=== PATIENT | female | born 2000 | race African-American/Black ===

== ENCOUNTER 2018-07-27 16:24 | Emergency (ER) | payer OTHER ==
[2018-07-27 16:36] VITALS: BP 115/60; PULSE 81; TEMP 98.4; BMI 26.2
--- NOTE | 2018-07-27 17:24 | PDOC ---
History of Present Illness - General Chief Complaint: Vaginal Sxs Stated Complaint: VAGINAL PAIN Time Seen by Provider: 07/27/18 16:54 History Source: Patient Exam Limitations: No Limitations - History of Present Illness Travel History: No Initial Comments: 07/27- patient came to evaluation for severe pain/swelling and thought to be abscess to her vulva. States onset was 2 days ago progressively worsen. Has discharge, has used some cleaning white with minimal resolved. Timing/Duration: reports: getting worse Quality: reports: moderate, sharpness Past History - Travel Traveled outside of the country in the last 30 days: No Close contact w/someone who was outside of country & ill: No - Past Medical History Allergies/Adverse Reactions: Allergies Allergy/AdvReac Type Severity Reaction Status Date / Time No Known Allergies Allergy Verified 07/27/18 16:31 Home Medications: Ambulatory Orders Hydroxychloroquine Sulfate [Plaquenil] 400 mg PO DAILY 08/19/15 Mycophenolate Mofetil [Cellcept -] 1,000 mg PO AM 08/19/15 Cholecalciferol (Vitamin D3) [Vitamin D3] 1,000 unit PO DAILY 10/22/17 Mycophenolate Mofetil [Cellcept] 1,500 mg PO HS 10/22/17 Acyclovir [Zovirax -] 400 mg PO TID #21 tablet 07/27/18 COPD: No Other medical history: lupus - Reproductive History (#): 0 Para: 0 Therapeutic (s) & number: No - Immunization History Immunization Up to Date: Yes - Suicide/Smoking/Psychosocial Hx Smoking History: Never smoked Have you smoked in the past 12 months: No Hx Alcohol Use: No Drug/Substance Use Hx: No Substance Use Type: None Review of Systems - Review of Systems Able to Perform ROS?: Yes Is the patient limited [place] proficient: Yes Constitutional: Yes: Symptoms Reported, See HPI, Malaise. No: Chills, Fever HEENTM: Yes: See HPI. No: Symptoms Reported Respiratory: Yes: See HPI. No: Symptoms reported, Cough : Yes: Symptoms Reported, See HPI, Burning, Discharge Integumentary: Yes: Symptoms Reported, See HPI, Erythema, Lesions, Lumps All Other Systems: Reviewed and Negative *Physical Exam - Vital Signs Last Vital Signs Temp Pulse Resp BP Pulse Ox 98.4 F 81 18 115/60 99 07/27/18 16:28 07/27/18 16:28 07/27/18 16:28 07/27/18 16:28 07/27/18 16:28 - Physical Exam General Appearance: Yes: Nourished, Appropriately Dressed, Apparent Distress, Moderate Distress HEENT: positive: MATTHEW, Normal ENT Inspection, TMs Normal, Pharynx Normal Female Pelvic Exam: negative: normal external exam (patient with numerous ulcerative lesions with thick yellowish drainage inner and external labia and some and vaginal os extending to perineum. Consistent with appearance of herpes) Gastrointestinal/Abdominal: positive: Soft Integumentary: positive: Erythema, Rash, Swelling. 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 Culture sent, recommended acyclovir 400 mg 3 times a day for one week and follow-up with [facility] in next week. Discussed need to discuss this outbreak with sexual partner as is contagious. 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 - Discharge Dispostion Disposition: HOME Condition at time of disposition: Stable Decision to Admit order: No - Prescriptions Prescriptions: Acyclovir [Zovirax -] 400 mg PO TID #21 tablet - Referrals Referrals: Sadi Helton MD [Primary Care Provider] - - Patient Instructions Printed Discharge Instructions: DI for Genital Herpes Additional Instructions: Rest, drink lots of fluids: Teas, water, soups Avoid contact with others until fevers and symptoms resolved Lots of handwashing and good hygiene Continue [id number] medications for symptomatic relief- vagicil creams to help soothe itching and chafing Tylenol or Motrin for fever and pain Valtrex 1 g twice a day for one week 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
== END 2018-07-27 17:45 | disposition home or self-care (01) ==
LOC: JER 16:24 → JERFT 16:24
DX: A60.04 Herpesviral vulvovaginitis (principal)
CPT/HCPCS: 87252; 99281-25

== ENCOUNTER 2019-12-20 11:08 | Emergency (ER) | payer OTHER ==
[2019-12-20 11:12] VITALS: BP 127/78; PULSE 88; TEMP 97.9; BMI 27.8
--- NOTE | 2019-12-20 11:44 | PDOC ---
History of Present Illness - General Stated Complaint: CHEST PAIN, DIARRHEA, STUFFY NOSE Time Seen by Provider: 12/20/19 11:09 - History of Present Illness Initial Comments: 12/20/19 11:38 19 years old with past medical history significant for lupus on Plaquenil and mycophenolate presents to the emergency department with concern for COVID. Patient complaining of runny nose mild fatigue and weakness and diarrhea several episodes nonbilious nonbloody no nausea no vomiting. Had mentioned chest pain but this is something which patient has had in the past sharp for a few seconds not new or different than previous episodes has been worked up by her PCP for this in the past Currently no chest pain Other symptoms are mild to moderate persistent constant her main concern is for COVID requesting COVID testing Past History - Medical History Allergies/Adverse Reactions: Allergies Allergy/AdvReac Type Severity Reaction Status Date / Time No Known Allergies Allergy Verified 12/20/19 11:08 Home Medications: Ambulatory Orders Hydroxychloroquine Sulfate [Plaquenil] 400 mg PO DAILY 08/19/15 Mycophenolate Mofetil [Cellcept -] 1,000 mg PO BID 08/19/15 COPD: No Other medical history: SLE - Reproductive History Is Patient Now?: No (#): 0 Para: 0 Therapeutic (s) & number: No - Immunization History Immunization Up to Date: Yes - Psycho-Social/Smoking History Smoking History: Never smoked Have you smoked in the past 12 months: No Information on smoking cessation initiated: No - Substance Abuse Hx (Audit-C & DAST Scrn) How often the patient has a drink containing alcohol: Never Score: In Men: 4 or > Positive; In Women: 3 or > Positive: 0 Screen Result (Pos requires Nsg. Audit-10AR): Negative In the last yr the pt used illegal drug/Rx for NonMed reason: No Score: Yes response is considered Positive: 0 Screen Result (Positive result requires Nsg. DAST-10): Negative Review of Systems - Review of Systems Comments:: 12/20/19 11:42 ROS: A complete review of 10 out of 10 review of systems is taken and is negative apart from what is previously mentioned below and in the HPI. *Physical Exam - Vital Signs Last Vital Signs Temp Pulse Resp BP Pulse Ox 97.9 F 88 16 127/78 100 12/20/19 11:08 12/20/19 11:08 12/20/19 11:08 12/20/19 11:08 12/20/19 11:08 - Physical Exam 12/20/19 11:42 Vitals: Triage Vital signs reviewed General Appearance: No acute distress, well nourished well developed, Head: Atraumatic, Neck: Supple; no Nucal rigidity Chest Wall: Nontender Cardiac: Regular rate and rhythym, no murmurs, no rubs, no gallops, Lungs: Clear to auscultation bilateral, good air movement bilaterally, Abdomen: Soft, non distended, normal bowel sounds, non tender to palpation Extremities: Full range of motion to all extremities, no cyanosis, clubbing, or edema Skin: Warm and dry, no rashes or lesions, no rash, no petechiae Psych: Normal mood, normal affect Medical Decision Making - Medical Decision Making 12/20/19 11:42 19 years old past medical history significant for lupus presents to the ED with runny nose diarrheal illness and weakness. No active chest pain offered patient an EKG and work-up but patient just wants COVID testing at this time as her chest pain is not new or different does not have any at this time History examination most consistent with viral GI illness however will swab for COVID Patient will return to the ED for any severe worsening symptoms Findings, the need for follow-up and strict return instructions discussed with patient. Discharge - Discharge Information Problems reviewed: Yes Clinical Impression/Diagnosis: Diarrhea Qualifiers: Diarrhea type: unspecified type Qualified Code(s): R19.7 - Diarrhea, unspecified Condition: Stable - Follow up/Referral Referrals: Sadi Helton MD [Primary Care Provider] - - Patient Discharge Instructions Patient Printed Discharge Instructions: Diarrhea Additional Instructions: Drink plenty of fluids. Take [id number] probiotic as directed on package Follow-up with your doctor within 1 week. Return to ED for any shortness of breath any returning or worsening chest pain any severe worsening symptoms or for any concerns. - Post Discharge Activity Work/Back to School Note: Back to Work
== END 2019-12-20 12:00 | disposition home or self-care (01) ==
LOC: FER 11:08
DX: R19.7 Diarrhea, unspecified (principal)
CPT/HCPCS: 99284-25; U0003

== ENCOUNTER 2020-01-17 14:10 | Emergency (ER) | payer OTHER ==
--- OUTSIDE RECORDS SUMMARY | 2020-01-17 14:18 | XMS ---
:2000 Author Organization [facility] Care Team Providers Name Role Phone Grace Barton MD Unavailable Unavailable Grace Barton MD Unavailable Unavailable Db-Jhonny Landry MD Unavailable Unavailable Db-Frantz, T Unavailable Unavailable Db-Frantz, T MD Unavailable Unavailable Db-Frantz, T MD Unavailable Unavailable Db-Frantz, T MD Unavailable Unavailable Db-Frantz, T Unavailable Unavailable Db-Frantz, T Unavailable Unavailable Db-Frantz, T MD Unavailable Unavailable Re-disclosure Warning The records that you are about to access may contain information from federally- assisted alcohol or drug abuse programs. If such information is present, then the following federally mandated warning applies: This information has been disclosed to you from records protected by federal confidentiality rules (42 CFR part 2). The federal rules prohibit you from making any further disclosure of this information unless further disclosure is expressly permitted by the written consent of the person to whom it pertains or as otherwise permitted by 42 CFR part 2. A general authorization for the release of medical or other information is NOT sufficient for this purpose. The Federal rules restrict any use of the information to criminally investigate or prosecute any alcohol or drug abuse patient.The records that you are about to access may contain highly sensitive health information, the redisclosure of which is protected by Article 27-F of the [facility] Public Health law. If you continue you may haveaccess to information: Regarding HIV / AIDS; Provided by facilities licensed or operated by the [facility] Office of Mental Health; or Provided by the [facility] Office for People With Developmental Disabilities. If such information is present, then the following [facility] mandated warning applies: This information has been disclosed to you from confidential records which are protected by state law. State law prohibits you from making any further disclosure of this information without the specific written consent of the person to whom it pertains, or as otherwise permitted by law. Any unauthorized further disclosure in violation of state law may result in a fine or penitentiary sentence or both. A general authorization for the release of medical or other information is NOT sufficient authorization for further disclosure. Family History Family Member Family Member Family Member Date of Description Data Source(s) Name Gender Status Status Unknown [facility] [facility] 12:[facility]:00 AM [facility] EDT [facility] ) Unknown Male Problem 11/08/2012 [facility] [facility] 12:00:00 AM [facility] EDT [facility] ) Encounters Encounter Providers Location Date Indications Data Source(s ) [facility] Rheumatology 20 (Matthew Stovall MD 12:18:00 Childrens PM EDT - Health 12/31/19 [facility]) 12:18:00 PM EDT OutpatientOFF Attender: Peds Rheum At 12/26/19 [facility]OUTPATIEN [facility] - systemic lupus ([place] T VISIT EST Sia JORDAN Telehealth 09:00:00 erythematosusLFT Child rens 20-32 AM EDT - elevationSystemic Health 12/26/19 lupus erythematosus, Phys icians 20 organ or system LL) 09:00:00 involvement AM EDT unspecified 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 LFT elevation Systemic lupus erythematosus, organ or s ystem involvement unspecified Attender: [place] [facility] 11/17/2019 [facility] 02:41:00 PM (Matthew Stovall MD EDT - Childrens 11/17/2019 Health 02:41:00 PM [facility] EDT [facility]) Outpatien Attender: [facility] 11/11/2019 LFT elevationWeight N EXTGEN tOFFICE/O [facility] Rheumatology 09:30:00 AM gainSystemic lupus (Deangelo Stovall MD EDT - erythematosus, Children s VISIT EST 11/11/2019 organ or system Health 20-32 09:30:00 AM involvement [facility] EDT unspecified LLP) LFT elevation Weight gain Systemic lupus erythematosus, organ or s ystem involvement unspecified Attender: Neil Peds 10/13/2019 [facility] Rheumatology 03:12:00 PM (Matthew Stovall MD EDT - Childrens 10/13/2019 Health 03:12:00 PM [facility] EDT [facility]) Outpatie Attender: Peds Rheum At 10/03/2019 Upper back painXiphoid [facility] Jhonny Aixat - 11:00:00 AM painGlomerular disease (Matthew /DAMARIS Stovall MD Telehealth EDT - in systemic lupus Child rens ENT 10/03/2019 erythematosusSystemic Hea lt VISIT 11:00:00 AM lupus erythematosus, Phy sicians EST EDT organ or system LLP) 20-32 involvement unspecified Upper back pain Xiphoid pain 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 Systemic lupus erythematosus, organ or s ystem involvement unspecified Attender: Neil Peds 09/04/2019 [facility] Rheumatology 10:16:00 AM (Matthew Stovall MD EDT - Childrens 09/04/2019 Health 10:16:00 AM [facility] EDT [facility]) Attender: Neil Peds 09/02/2019 [facility] Rheumatology 08:39:00 AM (Matthew Stovall MD EDT - Childrens 09/02/2019 Health 08:39:00 AM [facility]) Outpatie Attender: Peds Rheum At 08/29/2019 [facility] 09:[facility]00 AM coronavirus disease (Deangelo hernandezn /DAMARIS Stovall MD Telehealth EDT - (COVID-19)Glomerular [facility] 08/29/2019 disease in systemic Healt h VISIT 09:00:00 AM lupus [facility] EST EDT erythematosusSystemic LLP ) 13-20 lupus erythematosus, organ or system involvement unspecified History of 2018 novel coronavirus diseas e (COVID-19) 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 Systemic lupus erythematosus, organ or s ystem involvement unspecified 11-20 MINS OF Attender: Peds Rheum At 07/11/2019 [facility] Grace Duckwrothrst - 12:33:00 PM (Matthew DISCUSSION VIA Telehealth EDT - [facility] TELEPHONE E/M 07/11/2019 Health PHYS 12:33:00 PM [facility] EDT [facility]) Attender: Neil Peds 06/27/2019 [facility] Rheumatology 01:51:00 PM (Matthew Stovall MD EDT - Childrens 06/27/2019 Health 01:51:00 PM [facility] ED[facility]) OutpatientOFFI Attender: Neil Peds 06/04/2019 Systemic lupus NE XTGEN CE/OUTPATIENT [facility] Rheumatology 02:00:00 PM erythematosus, (Isaias ton VISIT EST Sia JORDAN EST - organ or system Childre ns -06/04/2019 involvement Health 02:00:00 PM unspecified [facility] EST LLP) Systemic lupus erythematosus, organ or s ystem involvement unspecified Attender: Neil Peds 04/24/2019 [facility] Rheumatology 10:37:00 AM (Matthew Stovall MD EST - Childrens 04/24/2019 Health 10:37:00 AM [facility] EST LLP) [facility] AM (Matthew Barton MD EST - Childrens 02/13/2019 Health 10:00:00 AM [facility] EST LLP) Attender: Neil Peds 02/12/2019 [facility] Rheumatology 11:05:00 AM (Matthew Stovall MD EST - Childrens 02/12/2019 Health 11:05:00 AM [facility] EST LLP) Outpatie Attender: Neil Peds 02/04/2019 [facility] 11:00:00 AM deficiencyNoncomplianc e (Matthew /DAMARIS Stovall MD EDT - w/medication treatment Childrens ENT 02/04/2019 due to intermit use of He alth VISIT 11:00:00 AM medicationSystemic lupus [facility]icians EST EDT erythematosus, organ or L LP) system involvement unspecified Vitamin D deficiency Noncompliance w/medication treatment due to intermit use of medication Systemic lupus erythematosus, organ or s ystem involvement unspecified Attender: J[facility]ny [facility] Peds 12/16/2018 02:22:00 NEXTGEN (Matthew Stovall MD Rheumatology PM EDT - 12/16/2018 [facility] 02:22:00 PM EDT Physician s LLP) Medications Medication Brand Start Product Dose Route Administrative Pharmacy [facility] Indications Reaction Description Data Name Date Form Instructions Instructions Source(s) Hydroxychlo Plaque active hydroxy chlor NEXTGEN roquine nil 2019 oquine ([place] Sulfate 200 200 mg 12:00: sulfate 2 00 Childrens MG Oral tablet 00 AM MG Oral Health Tablet EDT Tablet Physicians [Plaquenil] [Plaquenil] L LP) Plaquenil 200 mg tablet Patient has SLE and needs hydroxychloroq uine for control. mycophenolate CellCept 08/29/2019 active mycophenolate NEXTGEN mofetil 500 MG 500 mg 12:00:00 AM m ofetil 500 MG ([place] Oral Tablet tablet EDT Oral Tablet Childrens [Cellcept] [Cellcept] Hea lth CellCept 500 mg Phys icians tablet LLP) !! Check FamilyWize Pricing: BIN #: [id number] Group #: [id number] Card #: [id number] PCN:IZABELLA Hydroxychloroquine Plaquenil 07/11/2019 completed Hydroxychloroquine NEXTGEN Sulfate 200 MG Oral 200 mg 12:00:00 AM Sulfate 200 MG Oral ([place] Tablet [Plaquenil] tablet EDT Tabl et [Plaquenil] Childrens Plaquenil 200 mg Hea lth tablet [facility]) !! Check FamilyWize Pricing: BIN #: [id number] Group #: [id number] Card #: [id number] PCN:IZABELLA mycophenolate CellCept 07/11/2019 completed mycophenolate NEXTGEN mofetil 500 MG 500 mg 12:00:00 AM m ofetil 500 MG ([place] Oral Tablet tablet EDT Oral Tablet Childrens [Cellcept] [Cellcept] Hea lth CellCept 500 mg Phys icians tablet LLP) !! Check FamilyWize Pricing: BIN #: [id number] Group #: [id number] Card #: [id number] PCN: Ergocalciferol Vitamin 07/11/2019 active 1 capsule by NEXTGEN [id number] UNT Oral D2 1,250 12:00:00 AM mouth weekly ([place] Capsule Vitamin mcg EDT for syste yadira Childrens D2 1,250 mcg (50,000 lupus Hea lth (50,000 unit) unit) erythemato veronica [facility] capsule capsule LLP) !! Check FamilyWize Pricing: BIN #: [id number] Group #: [id number] Card #: [id number] PCN: Hydroxychloroquine Plaquenil 07/11/2019 completed Hydroxychloroquine NEXTGEN Sulfate 200 MG Oral 200 mg 12:00:00 AM Sulfate 200 MG Oral ([place] Tablet [Plaquenil] tablet EDT Tabl et [Plaquenil] Childrens Plaquenil 200 mg Hea lth tablet [facility]) !! Check FamilyWize Pricing: BIN #: [id number] Group #: [id number] Card #: [id number] PCN: Hydroxychloroquine Plaquenil 06/04/2019 completed Hydroxychloroquine NEXTGEN Sulfate 200 MG Oral 200 mg 12:00:00 AM Sulfate 200 MG Oral ([place] Tablet [Plaquenil] tablet EST Tabl et [Plaquenil] Childrens Plaquenil 200 mg Hea lth tablet [facility]) !! Check FamilyWize Pricing: BIN #: [id number] Group #: [id number] Card #: [id number] PCN: mycophenolate CellCept 06/04/2019 completed mycophenolate NEXTGEN mofetil 500 MG 500 mg 12:00:00 AM m ofetil 500 MG ([place] Oral Tablet tablet EST Oral Tablet Childrens [Cellcept] [Cellcept] Hea lth CellCept 500 mg Phys [facility] tablet LLP) !! Check FamilyWize Pricing: BIN #: [id number] Group #: [id number] Card #: [id number] PCN: mycophenolate CellCept 02/13/2019 completed mycophenolate NEXTGEN mofetil 500 MG 500 mg 12:00:00 AM m ofetil 500 MG ([place] Oral Tablet tablet EST Oral Tablet Childrens [Cellcept] [Cellcept] Hea lth CellCept 500 mg Phys [facility] tablet LLP) !! Check FamilyWize Pricing: BIN #: [id number] Group #: [id number] Card #: [id number] PCN: Hydroxychloroquine Plaquenil 02/12/2019 completed Hydroxychloroquine NEXTGEN Sulfate 200 MG Oral 200 mg 12:00:00 AM Sulfate 200 MG Oral ([place] Tablet [Plaquenil] tablet EST Tabl et [Plaquenil] Childrens Plaquenil 200 mg Hea lth tablet [facility]) !! Check FamilyWize Pricing: BIN #: [id number] Group #: [id number] Card #: [id number] PCN:IZABELLA Hydroxychloroquine Plaquenil 02/04/2019 completed Hydroxychloroquine NEXTGEN Sulfate 200 MG Oral 200 mg 12:00:00 AM Sulfate 200 MG Oral ([place] Tablet [Plaquenil] tablet EDT Tabl et [Plaquenil] Childrens Plaquenil 200 mg Hea lth tablet [facility]) !! Check FamilyWize Pricing: BIN #: [id number] Group #: [id number] Card #: [id number] PCN:IZABELLA mycophenolate MYCOPHENOLATE 08/02/2018 completed mycophenolate NEXTGEN mofetil 500 MG MOFETIL 500 MG 12:00:00 AM mofetil 500 MG ([place] Oral Tablet TABLET EDT Oral Tablet Childrens [Cellcept] [Cellcept] Hea lth MYCOPHENOLATE Physic ians MOFETIL 500 MG LLP) TABLET !! Check FamilyWize Pricing: BIN #: [id number] Group #: [id number] Card #: [id number] PCN:IZABELLA Hydroxychloroquine Plaquenil 07/12/2018 completed Hydroxychloroquine NEXTGEN Sulfate 200 MG Oral 200 mg 12:00:00 AM Sulfate 200 MG Oral ([place] Tablet [Plaquenil] tablet EDT Tabl et [Plaquenil] Childrens Plaquenil 200 mg Hea lth tablet [facility]) !! Check FamilyWize Pricing: BIN #: [id number] Group #: [id number] Card #: [id number] PCN: Ergocalciferol [id number] Vitamin D2 completed as needed NEXTGEN ([place] UNT Oral Capsule 50,000 unit Children Health Vitamin D2 50,000 capsule [facility]) unit capsule Insurance Providers Payer name Policy type / Policy ID Covered Covered alliance party's Policy Plan Coverage type alliance party ID relationship to [place] Information [place] FITO [id number] Commercial [id number] self [id number] insurance [facility] [id number] SP [id number] PLANS [employer] Commercial [id number] PLANS insurance [facility] [id number] PLANS Dental [id number] S [id number] 200 [facility] MKD Surgeries/Procedures Procedure Description Date Indications Data Source(s) OFFICE/OUTPATIENT VISIT 12/26/2019 NEXT GEN ([place] EST 20 12:00:00 AM EDT [facility] - 12/26/2019 [facility]) 12:00:00 AM EDT OFFICE/OUTPATIENT VISIT 11/11/2019 NEXT GEN ([facility] 12:00:00 AM EDT Childrens [place] [facility] - 11/11/2019 [facility]) 12:00:00 AM EDT OFFICE/OUTPATIENT VISIT 10/03/2019 NEXT GEN ([place] EST 12:00:00 AM EDT Childrens [place] [facility] - 10/03/2019 [facility]) 12:00:00 AM EDT OFFICE/OUTPATIENT VISIT 08/29/2019 NEXT GEN ([place] EST 13-20 12:00:00 AM EDT Childrens [place] [facility] - 08/29/2019 [facility]) 12:00:00 AM EDT Overhead Irrigator Changed The Dx 07/11/2019 NEXTGEN ([place] (codes Or Mapping) 12:00:00 AM EDT [facility] - 07/11/2019 [facility]) 12:00:00 AM EDT PHONE E/M PHYS/QHP 07/11/2019 NEXTGEN ( [place] 11-20 MIN 12:00:00 AM EDT Childrens [place] [facility] - 07/11/2019 [facility]) 12:00:00 AM EDT 11-20 MINS OF MEDICAL 07/11/2019 NEXTGE N ([place] DISCUSSION VIA 12:00:00 AM EDT [facility] TELEPHONE E/M PHYS - 07/11/2019 [facility]) 12:00:00 AM EDT OFFICE/OUTPATIENT VISIT 06/04/2019 NEXT GEN ([facility] 12:00:00 AM EST Childrenari Hawkins alth - 06/04/2019 [facility]) 12:00:00 AM EST OFFICE/OUTPATIENT VISIT 02/04/2019 NEXT GEN ([facility] 12:00:00 AM EDT Childrens [place] [facility] - 02/04/2019 [facility]) 12:00:00 AM EDT Results ID Date Data Source [id number] 12/20/2019 11:40:00 AM EDT [facility] Name Value Range Interpretation Description Data Sup porting Code Source(s) Document(s ) SARS [facility] coronavirus 2 RNA This lab was ordered by PEPE CHAVEZ and reported by [facility]. ID Date Data Source [id number] 08/28/2019 12:00:00 AM EDT [facility] Name Value Range Interpretation Code Description Data Aziza rce(s) Supporting Document(s ) 2019-nCoV [facility] RNA XXX DANIEL+probe- Imp This lab was ordered by [facility] and reported by [facility]. ID Date Data Source [id number] 06/20/2019 12:00:00 AM EDT [facility] Name Value Range Interpretation Code Description Data Aziza rce(s) Supporting Document(s ) SARS-COV-2 [facility] RNA [facility] DANIEL+PROBE- IMP This lab was ordered by Lali GRIGSBY and reported by [facility] EMMANUEL. Procedure Social History Code Duration Value Status Description Data Source(s ) Caffeine Use 12/26/2019 completed NEXTGEN (Isaias ton Details 12:00:00 AM [facility] EDT [facility] ) Smoking 12/26/2019 Unknown if completed Unknown if ever NEXTGEN ( [place] 12:00:00 AM ever smoked smoked [facility] EDT [facility] ) 11/11/2019 Never smoked completed Never smoked NEXTGEN ([place] 12:00:00 [facility] Caffeine Use 10/03/2019 completed NEXTGEN ([place] ton Details 12:00:00 AM [facility] EDT [facility] ) Vital Signs ID Date Data Source UNK Name Value Range Interpretation Code Description Data Source(s) Body mass index 27.58 kg/m2 Overweight 27.58 kg/m2 NEXTGEN ([place] (BMI) [Ratio] [facility] ) Body temperature 36.8 Nieves 36.8 Nieves NEXTGEN ([facility] ) Heart rate 73 /min 73 /min NEXTGEN ([place] [facility] ) Diastolic blood 78 mm[Hg] 78 mm[Hg] NEXTGEN ( [place] pressure [facility] ) Systolic blood 120 mm[Hg] 120 mm[Hg] NEXTGEN ([place] pressure [facility] ) Body weight 64.410 kg 64.410 kg NEXTGEN ([place] [facility] ) Body height 152.80 cm 152.80 cm NEXTGEN ([place] [facility] ) Body mass index 25.95 kg/m2 Overweight 25.95 kg/m2 NEXTGEN ([place] (BMI) [Ratio] [facility] ) Body temperature 36.4 Nieves 36.4 Nieves NEXTGEN ([facility] ) Heart rate 64 /min 64 /min NEXTGEN ([place] [facility] ) Diastolic blood 76 mm[Hg] 76 mm[Hg] NEXTGEN ( [place] pressure [facility] ) Systolic blood 118 mm[Hg] 118 mm[Hg] NEXTGEN ([place] pressure [facility] ) Body weight 59.965 kg 59.965 kg NEXTGEN ([place] [facility] ) Body height 152.00 cm 152.00 cm NEXTGEN ([facility] ) Body surface area 1.56 m2 1.56 m2 NEXTGEN ([place] [facility] ) Body mass index 24.55 kg/m2 24.55 kg/m2 NEXTGEN ([place] (BMI) [Ratio] [facility] ) Body temperature 36.4 Nieves 36.4 Nieves NEXTGEN ([facility] ) Heart rate 82 /min 82 /min NEXTGEN ([place] [facility] ) Diastolic blood 66 mm[Hg] 66 mm[Hg] NEXTGEN ( [place] pressure [facility] ) Systolic blood 121 mm[Hg] 121 mm[Hg] NEXTGEN ([place] pressure [facility] ) Body weight 57.334 kg 57.334 kg NEXTGEN ([place] [facility] ) Body height 152.80 cm 152.80 cm NEXTGEN ([place] [facility] ) Patient Treatment Plan of Care Planned Activity Planned Date Details Description Data Source (s) Hydroxychloroquine Sulfate 08/29/2019 N EXTGEN ([place] 200 MG Oral Tablet 12:00:00 AM EDT [facility]) mycophenolate mofetil 500 MG 08/29/2019 NEXTGEN ([place] Oral Tablet [Cellcept] 12:00:00 AM EDT [facility]) Ergocalciferol [id number] UNT 07/11/2019 NEX TGEN ([place] Oral Capsule 12:00:00 AM EDT [facility]) Hydroxychloroquine Sulfate 07/11/2019 N EXTGEN ([place] 200 MG Oral Tablet 12:00:00 AM EDT [facility] [Plaquenil] [facility]) mycophenolate mofetil 500 MG 07/11/2019 NEXTGEN ([place] Oral Tablet [Cellcept] 12:00:00 AM EDT [facility]) Hydroxychloroquine Sulfate 07/11/2019 N EXTGEN ([place] 200 MG Oral Tablet 12:00:00 AM EDT [facility] [Plaquenil] [facility]) mycophenolate mofetil 500 MG 06/04/2019 NEXTGEN ([place] Oral Tablet [Cellcept] 12:00:00 AM EST [facility]) Hydroxychloroquine Sulfate 06/04/2019 N EXTGEN ([place] 200 MG Oral Tablet 12:00:00 AM EST [facility] [Plaquenil] [facility]) mycophenolate mofetil 500 MG 02/13/2019 NEXTGEN ([place] Oral Tablet [Cellcept] 12:00:00 AM EST [facility]) Hydroxychloroquine Sulfate 02/12/2019 N EXTGEN ([place] 200 MG Oral Tablet 12:00:00 AM EST [facility] [Plaquenil] [facility]) Hydroxychloroquine Sulfate 02/04/2019 N EXTGEN ([place] 200 MG Oral Tablet 12:00:00 AM EDT [facility] [Plaquenil] [facility]) mycophenolate mofetil 500 MG 08/02/2018 NEXTGEN ([place] Oral Tablet [Cellcept] 12:00:00 AM EDT [facility]) Hydroxychloroquine Sulfate 07/12/2018 N EXTGEN ([place] 200 MG Oral Tablet 12:00:00 AM EDT [facility] [Plaquenil] [facility]) Ergocalciferol [id number] UNT NEX TGEN ([place] Oral Capsule [facility])
[2020-01-17] MEDS ORDERED: SODIUM CHLORIDE 1,000 ML IV STA (14:24)
[2020-01-17] MEDS ORDERED: FAMOTIDINE 20 MG/50 ML IVPB 20 MG/50 ML MG IVPB ONE (14:24)
[2020-01-17 14:26] VITALS: BP 134/80; PULSE 93; TEMP 97.9; BMI 27.8
--- NOTE | 2020-01-17 14:27 | PDOC ---
History of Present Illness - General Chief Complaint: Weakness Stated Complaint: WEAKNESS, Time Seen by Provider: 01/17/20 14:11 - History of Present Illness Initial Comments: 01/17/20 14:25 19 F with h/o lupus on mycophenylate and plaquenil presenting to ED with diarrhea and weakness. Pt states that her symptoms started today. Endorses multiple episodes of watery brown diarrhea. Denies abdominal pain. Denies N/V. Endorses chills without fever. No dysuria. No LOPEZ. No CP/SOB/cough. Past History - Medical History Allergies/Adverse Reactions: Allergies Allergy/AdvReac Type Severity Reaction Status Date / Time No Known Allergies Allergy Verified 01/17/20 14:16 Home Medications: Ambulatory Orders Hydroxychloroquine Sulfate [Plaquenil] 400 mg PO DAILY 08/19/15 Mycophenolate Mofetil [Cellcept -] 1,000 mg PO BID 08/19/15 COPD: No - Reproductive History (#): 0 Para: 0 Therapeutic (s) & number: No - Immunization History Immunization Up to Date: Yes - Psycho-Social/Smoking History Smoking History: Never smoked Have you smoked in the past 12 months: No Review of Systems - Review of Systems Comments:: 01/17/20 14:26 GENERAL/CONSTITUTIONAL: No fever or chills. + weakness. HEAD, EYES, EARS, NOSE AND THROAT: No change in vision. No ear pain or discharge. No sore throat. CARDIOVASCULAR: No chest pain, no shortness of breath, no loss of consciousness RESPIRATORY: No cough, wheezing, or hemoptysis. GASTROINTESTINAL: + diarrhea. No nausea, vomiting, or constipation. GENITOURINARY: No dysuria, frequency, or change in urination. MUSCULOSKELETAL: No joint or muscle swelling or pain. No neck or back pain. SKIN: No rash NEUROLOGIC: No vertigo, no change in strength/sensation. ENDOCRINE: No increased thirst. No abnormal weight change. HEMATOLOGIC/LYMPHATIC: No anemia, easy bleeding, or history of blood clots. ALLERGIC/IMMUNOLOGIC: No hives or skin allergy. *Physical Exam - Physical Exam 01/17/20 14:26 "GENERAL: Awake, alert, and fully oriented, in no acute distress. HEAD: No signs of trauma EYES: PERRLA, EOMI, sclera anicteric, conjunctiva clear ENT: Auricles normal inspection, hearing grossly normal, nares patent, oropharynx clear without exudates. Moist mucosa NECK: Nontender, no stepoffs, Normal ROM, supple, no lymphadenopathy, JVD, or masses LUNGS: Breath sounds equal, clear to auscultation bilaterally. No wheezes, and no crackles HEART: Regular rate and rhythm, normal S1 and S2, no murmurs, rubs or gallops ABDOMEN: Soft, nontender, normoactive bowel sounds. No guarding, no rebound. No masses EXTREMITIES: Normal range of motion, no edema. No clubbing or cyanosis. No cords, erythema, or tenderness NEUROLOGICAL: Cranial nerves II through XII intact. 5/5 strength and sensation in all extremities, Normal speech, normal gait, normal cerebellar function SKIN: Warm, Dry, normal turgor, no rashes or lesions noted. ED Treatment Course - LABORATORY CBC & Chemistry Diagram: 01/17/20 14:37 01/17/20 14:37 Medical Decision Making - Medical Decision Making 01/17/20 14:26 19 F with diarrhea and weakness. No abdominal tenderness on exam. - Labs - IVF 01/17/20 16:17 Labs unremarkable Pt reassessed - states she feels much better after fluids Abdomen continues to be benign Pt is well appearing, with normal vitals. Clinically stable for DC at this time. I discussed the physical exam findings, ancillary test results and final diagnoses with the patient. I answered all of the patient's questions. The patient was satisfied with the care received and felt comfortable with the discharge plan and treatment plan. The patient agrees to follow up with the primary care physician within 24-72 hours. Discharge - Discharge Information Problems reviewed: Yes Clinical Impression/Diagnosis: Diarrhea, Lightheaded, Weakness Disposition: HOME - Follow up/Referral - Patient Discharge Instructions Patient Printed Discharge Instructions: DI for Diarrhea and Traveler's Diarrhea -- Adult Additional Instructions: Drink plenty of fluids to stay hydrated. Take imodium as needed for your diarrhea. If you start to experience any abdominal pain, fevers, nausea or vomiting, blood in your stool, or diarrhea lasting longer than 5 days, return to the ER immediately. Otherwise, follow up with your primary doctor within 1-2 weeks. - Post Discharge Activity
[2020-01-17 15:05] LABS: BASO % 2.1 % (0-2.0); EOS % 0.6 % (0-4.5); HEMATOCRIT 35.3 % (32.4-45.2); HEMOGLOBIN 11.6 GM/dl (10.7-15.3); LYMPH % 47.6 % (8-40); MCH 30.2 pg (25.7-33.7); MEAN CELL VOLUME 91.5 fl (80-96); MEAN PLT VOLUME 7.7 fl (7.5-11.1); MONO % 9.8 % (3.8-10.2); NEUT % 39.9 % (42.8-82.8); PLATELET COUNT 300 K/MM3 (134-434); RBC 3.86 M/mm3 (3.60-5.2); RDW 13.8 % (11.6-15.6); WHITE BLOOD COUNT 4.9 K/mm3 (4.0-10.8)
[2020-01-17 15:13] LABS: ALBUMIN 4.1 g/dl (3.4-5.0); BILIRUBIN,TOTAL 0.6 mg/dl (0.2-1); CALCIUM 8.7 mg/dl (8.5-10); CREATININE 0.7 mg/dl (0.55-1.3); TOT PROT 7.9 g/dl (6.4-8.2)
[2020-01-17 16:49] LABS: HCG,QUALITATIVE URINE Negative
== END 2020-01-17 17:28 | disposition home or self-care (01) ==
LOC: FER 14:10
PROC: 3E033GC Introduction of Other Therapeutic Substance into Peripheral Vein, Percutaneous Approach (ICD-10-PCS; principal; 2020-01-17)
PROC: 3E0337Z Introduction of Electrolytic and Water Balance Substance into Peripheral Vein, Percutaneous Approach (ICD-10-PCS; 2020-01-17)
DX: R19.7 Diarrhea, unspecified (principal); R42 Dizziness and giddiness; R53.1 Weakness
CPT/HCPCS: 36415; 80053; 81003; 84703; 85025; 87086; 99284-25

== ENCOUNTER 2020-03-26 20:20 | Emergency (ER) | payer OTHER ==
[2020-03-26 20:28] VITALS: BP 122/65; PULSE 89; TEMP 97.8; BMI 29.9
[2020-03-26] MEDS ORDERED: AZITHROMYCIN 500 MG TABLET PO ONE (23:55)
[2020-03-26] MEDS ORDERED: AZITHROMYCIN 250 MG TABLET ONE (23:57)
== END 2020-03-27 00:05 | disposition home or self-care (01) ==
LOC: FER 20:20
DX: J40 Bronchitis, not specified as acute or chronic (principal)
CPT/HCPCS: 71046-TC-FY; 81003; 84703; 93005; 99284-25; C9803; U0003

== ENCOUNTER 2020-08-19 19:05 | Emergency (ER) | payer OTHER ==
[2020-08-19 19:14] VITALS: BP 131/76; PULSE 90; TEMP 98.2; BMI 30.2
[2020-08-19] MEDS ORDERED: SODIUM CHLORIDE 1,000 ML IV ONE (20:02)
[2020-08-19 20:23] LABS: BASO % 2.5 % (0-2.0); EOS % 0.8 % (0-4.5); HEMATOCRIT 38.3 % (32.4-45.2); HEMOGLOBIN 12.8 GM/dl (10.7-15.3); LYMPH % 42.6 % (8-40); MCHC 33.5 g/dl (32.0-36.0); MEAN CELL VOLUME 92.7 fl (80-96); MEAN PLT VOLUME 7.6 fl (7.5-11.1); MONO % 7.3 % (3.8-10.2); NEUT % 46.8 % (42.8-82.8); PLATELET COUNT 310 K/MM3 (134-434); RBC 4.13 M/mm3 (3.60-5.2); RDW 11.6 % (11.6-15.6); WHITE BLOOD COUNT 4.7 K/mm3 (4.0-10.8)
[2020-08-19 20:33] LABS: ALBUMIN 4.1 g/dl (3.4-5.0); ALK PHOS 50 U/L (45-117); ANION GAP 7 MMOL/L (8-16); BILIRUBIN,TOTAL 0.8 mg/dl (0.2-1); CHLORIDE 104 mmol/L (98-107); CO2 24 mmol/L (21-32); CREATININE 0.9 mg/dl (0.55-1.3); GLUCOSE,RANDOM 112 mg/dl (74-106); SGOT/AST 26 U/L (15-37); SGPT/ALT 28 U/L (13-61); SODIUM 135 mmol/L (136-145); TOT PROT 7.8 g/dl (6.4-8.2)
== END 2020-08-19 21:34 | disposition home or self-care (01) ==
LOC: FER 19:05
PROC: 3E0337Z Introduction of Electrolytic and Water Balance Substance into Peripheral Vein, Percutaneous Approach (ICD-10-PCS; principal; 2020-08-19)
DX: R53.83 Other fatigue (principal); M79.10 Myalgia, unspecified site
CPT/HCPCS: 36415; 71045-TC-FY; 80053; 82550; 82553; 84484; 85025; 93005; 99284-25

== ENCOUNTER 2021-11-20 07:14 | Emergency (ER) | payer OTHER ==
[2021-11-20 07:27] VITALS: BP 119/77; PULSE 76; RESP 20; TEMP 97.9; BMI 31.7
[2021-11-20] MEDS ORDERED: FAMOTIDINE 20 MG/50 ML IVPB 20 MG in PREMIX 50 IVPB ONE (07:47)
[2021-11-20] MEDS ORDERED: SODIUM CHLORIDE 1,000 ML IV ONE (07:47)
[2021-11-20] MEDS ORDERED: ONDANSETRON 4 MG/2 ML VIAL IVPB ONE (07:47)
[2021-11-20] MEDS ORDERED: ONDANSETRON 4 MG/2 ML VIAL ONE (08:10)
[2021-11-20] MEDS ORDERED: FAMOTIDINE 20 MG/50 ML IVPB 20 MG/50 ML MG IVPB ONE (08:11)
[2021-11-20] MEDS ORDERED: ACETAMINOPHEN 325 MG TABLET (FP) PO ONE (08:31)
[2021-11-20] MEDS ORDERED: ACETAMINOPHEN 325 MG TABLET (FP) ONE (08:51)
== END 2021-11-20 10:00 | disposition home or self-care (01) ==
LOC: FER 07:14
PROC: 3E033GC Introduction of Other Therapeutic Substance into Peripheral Vein, Percutaneous Approach (ICD-10-PCS; principal; 2021-11-20)
PROC: 3E033GC Introduction of Other Therapeutic Substance into Peripheral Vein, Percutaneous Approach (ICD-10-PCS; 2021-11-20)
PROC: 3E0337Z Introduction of Electrolytic and Water Balance Substance into Peripheral Vein, Percutaneous Approach (ICD-10-PCS; 2021-11-20)
DX: E86.0 Dehydration (principal); K29.20 Alcoholic gastritis without bleeding
CPT/HCPCS: 81025; 99284-25